=== PATIENT | female | born 1990 | race African-American/Black ===

== ENCOUNTER 2017-10-12 17:14 | Emergency (ER) | payer MEDICAID, OTHER ==
[~2017-10-12] VITALS: Ht 147.3 cm; Wt 52.2 kg
--- NOTE | 2017-10-12 17:29 | NUR ---
MID/LOW BACK PAIN SINCE YESTERDAY-WORSE TODAY, NO TRAUMA. N/V, DENIES HEMATURIA/ DYSURIA. PATIENT IS AFEBRILE. VSS
[2017-10-12 17:39] LABS: APPEARANCE,URINE Clear (CLEAR); BILIRUBIN,URINE Negative (NEGATIVE); BLOOD, URINE Trace-lysed Ery/uL (NEGATIVE); COLOR,URINE Yellow (YELLOW); KETONES,URINE 40 (NEGATIVE); LEUKOCYTE ESTERASE ,URINE Negative (NEGATIVE); NITRITE, URINE Negative (NEGATIVE); PROTEIN,URINE Negative (NEGATIVE); UGLUCOSE Negative (NEGATIVE); UROBILINOGEN,URINE 0.2 EU/dL (0.2)
[2017-10-12] MEDS ORDERED: KETOROLAC TROMETHAMINE 15 MG/ML VIAL ONE (17:49)
[2017-10-12 17:52] LABS: BACTERIA,URINE None seen /HPF (None Seen); RBC,URINE 0-2 /HPF (0-2); SQUAMOUS EPITHELIAL CELL,UR None Seen /HPF (None Seen); WBC,URINE NONE SEEN /HPF (0-3)
[2017-10-12] MEDS ORDERED: ONDANSETRON 4 MG TAB.RAPDIS SL ONE (18:00)
[2017-10-12] MEDS ORDERED: KETOROLAC TROMETHAMINE INJ 60 MG/2 ML VIAL IM ONE (18:00)
[2017-10-12] MEDS ORDERED: KETOROLAC TROMETHAMINE INJ 30 MG/ML VIAL IV ONE (18:00)
[2017-10-12] MEDS ORDERED: IV NS 0.9% 1,000 ML BAG IV ONE (18:00)
[2017-10-12] MEDS ORDERED: ONDANSETRON HCL/PF 4 MG/2 ML VIAL IVP ONE (18:00)
--- NOTE | 2017-10-12 18:00 | NUR ---
Patient is resting comfortably in bed with eyes closed. Easily aroused. VSS
[2017-10-12 18:08] LABS: BASOPHILS # (AUTO) 0.2 /CMM (0.0-0.2); HEMATOCRIT 37 % (33-45); LYMPHOCYTES # (AUTO) 1.2 /CMM (0.8-4.8); LYMPHOCYTES % (AUTO) 23.6 % (20.0-44.0); MEAN CORPUSCULAR HGB CONC 35 g/dl (31.0-36.0); MEAN CORPUSCULAR VOLUME 90 fL (82-100); MONOCYTES # (AUTO) 0.5 /CMM (0.1-1.30); MONOCYTES % (AUTO) 8.7 % (2.0-12.0); NEUTROPHILS # (AUTO) 3.2 /CMM (1.8-8.9); NEUTROPHILS % (AUTO) 63.7 % (43.0-81.0); PLATELET COUNT (AUTO) 325 /CMM (150-450); RED BLOOD CELL COUNT(AUTO) 4.15 MIL/uL (4.0-5.2); WHITE BLOOD COUNT (AUTO) 5.2 K/uL (4.3-11.0)
[2017-10-12 18:18] LABS: CALCIUM, SERUM 9.9 mg/dL (8.5-10.1); CREATININE 0.7 mg/dL (0.6-1.3); POTASSIUM 3.7 mmol/L (3.5-5.1)
[2017-10-12 20:06] VITALS: BP 124/78
--- NOTE | 2017-10-12 20:06 | NUR ---
Patient discharged to home in stable condition. Written and verbal after care instructions given. Patient verbalizes understanding of instruction.IV removed. Catheter intact and site benign. Pressure and 4x4 applied to site. No bleeding noted.
== END 2017-10-12 20:07 | disposition home or self-care (01) ==
LOC: ER 17:19
DX: M54.5 Low back pain (principal); R10.2 Pelvic and perineal pain; E86.0 Dehydration; R11.2 Nausea with vomiting, unspecified; R82.4 Acetonuria; J45.909 Unspecified asthma, uncomplicated; Z88.8 Allergy status to other drugs, medicaments and biological substances
CPT/HCPCS: 36415; 76856-TC; 80048-TC; 81000-TC; 84703-TC; 85025-TC; 87491; 87591; A4606; J1885; J7030; Z7610